=== PATIENT | female | born 1975 | race African-American/Black ===

== ENCOUNTER 2018-12-14 20:28 | Emergency (ER) | payer SELFPAY ==
[~2018-12-14] VITALS: Ht 180.3 cm; Wt 164.1 kg
[2018-12-14 20:41] VITALS: Ht 180.3 cm; Wt 164.1 kg
[2018-12-14] MEDS ORDERED: PROM5SYR2 PO (23:59)
[2018-12-14] MEDS ORDERED: PRED20TA PO (23:59)
[2018-12-15] MEDS ORDERED: predniSONE 20 MG TAB PO ONE
[2018-12-15] MEDS ORDERED: PROMETHAZINE/CODEINE 5ML CUP PO ONE
[2018-12-15] MEDS ORDERED: PROM5SYR2 PO (00:16)
[2018-12-15 00:18] VITALS: BP 137/91; PULSE 84; RESP 18
--- NOTE | 2018-12-15 00:22 | ERD ---
ER Documentation Chief Complaint Chief Complaint COUGH AND WHEEZING HPI 43-year-old female with history of COPD presents with complaint of cough. She states she think she is having a COPD flareup and wants prednisone as well as promethazine with codeine. Patient was offered breathing treatment ER but she refused. In addition she states that she does not need any more albuterol or iPatropium as she already has those medications on hand. Denies chest pain, shortness of breath, pallor, cyanosis, syncope, stridor, respiratory distress. ROS All systems reviewed and are negative except as per history of present illness. Medications Home Meds Active Scripts Promethazine HCl/Codeine (Prometh-Codein 6.25-10 mg/5 ml) 5 Ml Syrup, 5 ML PO Q4 for cough, #4 OZ 1 Refill Prov:FERNANDOKAITLYNYOSEFLIVAN 12/15/18 Prednisone* (Prednisone*) 20 Mg Tab, 60 MG PO DAILY for COPD for 4 Days, TAB Prov:LIVAN CRISOSTOMO 12/14/18 Allergies Allergies: Coded Allergies: benzonatate (Verified Allergy, Intermediate, RASH, 12/14/18) dexamethasone (Verified Allergy, Intermediate, RASH, 12/14/18) guaifenesin (Verified Allergy, Intermediate, RASH, 12/14/18) PMhx/Soc Hx Respiratory Disorders: Yes (COPD) Hx Alcohol Use: No Hx Substance Use: No Hx Tobacco Use: No Smoking Status: Former smoker FmHx Family History: No diabetes, No coronary disease, No other Physical Exam Vitals Vital Signs Date Temp Pulse Resp B/P (MAP) Pulse Ox O2 O2 Flow FiO2 Time Delivery Rate 12/14/18 99.3 90 17 158/89 98 20:41 (112) Physical Exam Const: No acute distress Head: Atraumatic Eyes: Normal Conjunctiva ENT: Normal External Ears, Nose and Mouth. No JVD. Neck: Full range of motion. No meningismus. Resp: Clear to auscultation bilaterally equal breath sounds.. No pallor or cya nosis. Cardio: Regular rate and rhythm, no murmurs Abd: Soft, non tender, non distended. Normal bowel sounds Skin: No petechiae or rashes Back: No midline or flank tenderness Ext: No cyanosis, or edema Neur: Awake and alert Psych: Normal Mood and Affect Results 24 hrs Current Medications Medications Dose Sig/Kaleigh Start Time Status Last (Trade) Ordered Route PRN Stop Time Admin Dose Reason Admin Prednisone 60 mg ONCE ONCE 12/15/18 DC 12/15/18 (Prednisone) PO 00:00 00:06 12/15/18 00:01 Promethazine 10 ml ONCE ONCE 12/15/18 DC 12/15/18 HCl/ PO 00:00 00:06 Codeine 12/15/18 00:01 (Phenergan/ Codeine) Procedures/MDM Patient refused breathing treatment in the ER so she was just given 60 mg of prednisone as well as 10 mL's of promethazine with codeine. Patient given Rx for 60 mg prednisone to take over the next 4 days as well as 5 mL is present with codeine to take as needed. Patient stated that she had plenty of albuterol and ipratropium on hand and refused a refill. I will suspicion for respiratory distress, acute heart failure, myocardial infarction, pulmonary embolism, status asthmaticus, or any other emergent condition. Patient discharged with strict ER precautions. Patient advised to follow up with PMD. All questions answered at discharge. Departure Diagnosis: Primary Impression: Cough Additional Impression: COPD (chronic obstructive pulmonary disease) COPD type: chronic bronchitis Chronic bronchitis type: unspecified Qualified Codes: J42 - Unspecified chronic bronchitis Condition: Stable Patient Instructions: Treatments for COPD, Copd Flare, Cough, Chronic, Uncertain Cause, (Adult) Referrals: [facility] YOU HAVE RECEIVED A MEDICAL SCREENING EXAM AND THE RESULTS INDICATE THAT YOU DO NOT HAVE A CONDITION THAT REQUIRES URGENT TREATMENT IN THE EMERGENCY DEPARTMENT. FURTHER EVALUATION AND TREATMENT OF YOUR CONDITION CAN WAIT UNTIL YOU ARE SEEN IN YOUR DOCTORS OFFICE WITHIN THE NEXT 1-2 DAYS. IT IS YOUR RESPONSIBILITY TO MAKE AN APPOINTMENT FOR FOLOW-UP CARE. IF YOU HAVE A PRIMARY DOCTOR --you should call your primary doctor and schedule an appointment IF YOU DO NOT HAVE A PRIMARY DOCTOR YOU CAN CALL OUR PHYSICIAN REFERRAL HOTLINE AT IF YOU CAN NOT AFFORD TO SEE A PHYSICIAN YOU CAN CHOSE FROM THE FOLLOWING [facility] [id number] [facility] [address] [facility]. [facility] [address] [facility] [address] [facility] [address] [facility]. [facility]. [address] Additional Instructions: FOLLOW UP WITH YOUR PRIMARY CARE PHYSICIAN TOMORROW.Return to this facility if you are not improving as expected. LIVAN CRISOSTOMO Dec 15, 2018 00:21
== END 2018-12-15 00:54 | disposition home or self-care (01) ==
LOC: FTE 20:28
DX: J42 Unspecified chronic bronchitis (principal)
CPT/HCPCS: 99283; J7512